=== PATIENT | female | born 1990 | race Caucasian/White ===

== ENCOUNTER 2019-01-06 06:14 | Emergency (ER) | payer BC, OTHER ==
[2019-01-06 06:25] VITALS: TEMP 97.4; BMI 23.8
--- NOTE | 2019-01-06 06:38 | PDOC ---
History of Present Illness - General Chief Complaint: Pain, Acute Stated Complaint: LOWER ABDOMINAL PAIN, BURNING WITH URINATION Time Seen by Provider: 01/06/19 06:26 History Source: Patient Exam Limitations: No Limitations - History of Present Illness Initial Comments: 01/06/19 06:41 This is a 28-year-old female who comes in complaining of body pain and abdominal pain. Patient said that she was fine yesterday at work went to go to the gym and a temperature to the gym she felt so uncomfortable that she decided to go home instead and did not go to the gym workout. Patient said over the evening and night the pain became progressively worse and started initially as periumbilical became lower abdominal pain associated with some dysuria and also radiated up into her chest and she says it hurts when she moves hurts when she breathes hurts when she coughs. Patient denies any significant cough or congestion, she denies any fevers or chills. Patient is otherwise healthy and takes no medication other than occasional medication for seasonal ALLERGIES. Allergies: as per nursing notes Past Medical History: none Social history: Lives with family. No smoking. No alcohol. No illicit drugs. Surgical history: None General: No fevers or chills, no weakness, no weight loss HEENT: No change in vision. No sore throat,. No ear pain CardioVascular: +chest discomfort pleuritic in natur, No shortness of breath, Respiratory:No cough, or wheezing. Gastrointestinal: no nausea, vomiting, diarrhea or constipation, No rectal bleeding. + Diffuse abdominal pain Genitourinary: + dysuria, no hematuria, or frequency Musculoskeletal: No joint or muscle pain or swelling Neurologic: No headache, vertigo, dizziness or loss of consciousness Psychiatric: nor depression Skin: No rashes or easy bruising Endocrine: no increased thirst or abnormal weight change Allergic: no skin or latex allergy All other systems reviewed and normal Exam: General: Well-nourished well-developed individual, no acute distress HEENT: Throat: Normal, tonsils normal, no erythema or exudate Neck: Supple, no meningeal signs, no lymphadenopathy Eyes::Pupils equal reactive and round, extraocular motion intact Chest: There is some tenderness on palpation of the anterior chest wall and pain reproduced with palpation and respiration Cardiac: S1-S2 normal, regular rate and rhythm, no murmurs rubs or gallops Respiratory: Lungs clear to auscultation bilateral, associated pleuritic chest pain with respiration Abdomen: Soft, nondistended, increased bowel sounds, there is + tenderness on palpation diffusely, there is no guarding or rebound Extremities: Warm, dry, no cyanosis, clubbing, or edema Skin: No rashes Neuro: Alert and oriented x3, CN II - XII intact, nonfocal exam with normal strength, normal sensation, normal reflexes, normal gait, Psych: Normal mood and affect Assessment and plan: This is a 28-year-old female who comes in with body aches and diffuse abdominal pain, and pleuritic chest pain. I'll obtain a work up including CBC, comp, lipase, urine, urine , urine culture, chest x-ray, EKG, cardiac profile, CRP 01/06/19 06:53 [facility], Dr. Rubio including history, physical exam and ancillary studies. Oncoming Emergency Physician has assumed care for the patient and will complete the evaluation and treatment. Patient is aware of the plan. Pt is clinically unchanged and stable. Past History - Past Medical History Allergies/Adverse Reactions: Allergies Allergy/AdvReac Type Severity Reaction Status Date / Time prednisone Allergy Verified 01/06/19 06:16 Home Medications: Ambulatory Orders Fexofenadine HCl [Beba Allergy] 60 mg PO DAILY 01/06/19 COPD: No Other medical history: ALLERGIES - Suicide/Smoking/Psychosocial Hx Smoking History: Never smoked Have you smoked in the past 12 months: No Information on smoking cessation initiated: No Hx Alcohol Use: No Drug/Substance Use Hx: No Substance Use Type: None *Physical Exam - Vital Signs Last Vital Signs Temp Pulse Resp BP Pulse Ox 97.4 F L 63 16 126/79 100 01/06/19 06:19 01/06/19 06:19 01/06/19 06:19 01/06/19 06:19 01/06/19 06:19 ED Treatment Course - LABORATORY CBC & Chemistry Diagram: 01/06/19 06:45 01/06/19 06:45 *DC/Admit/Observation/Transfer Diagnosis at time of Disposition: Ovarian cyst - Discharge Dispostion Disposition: HOME Condition at time of disposition: Stable - Referrals Referrals: [facility] at [place] [Provider Group] - Patient Instructions Printed Discharge Instructions: Ovarian Cyst Additional Instructions: Drink plenty of fluids. Take 2 tabs Aleve twice a day for the next 3 days. Follow-up with your GOL[employer]SE LABORER in 1-2 days. Return to the emergency department for any fever vomiting severe worsening abdominal pain or chest pain or for any concerns. - Post Discharge Activity Forms/Work/School Notes: Back to Work
[2019-01-06] MEDS ORDERED: KETOROLAC TROMETHAMINE 30 MG/1 ML VIAL ONE (06:47)
[2019-01-06] MEDS ORDERED: SODIUM CHLORIDE 1,000 ML IV ONE (06:47)
[2019-01-06] MEDS ORDERED: KETOROLAC TROMETHAMINE 30 MG/1 ML VIAL IVPUSH ONE (06:47)
[2019-01-06] MEDS ORDERED: ACETAMINOPHEN INJECTION 100 ML IVPB ONE (07:20)
[2019-01-06] MEDS ORDERED: ACETAMINOPHEN 1000 MG/100 ML VIAL (NON FORMULARY) IVPB ONE (07:21)
[2019-01-06 07:50] LABS: BASO % 0.6 % (0-2.0); EOS % 2.5 % (0-4.5); HEMATOCRIT 35.4 % (32.4-45.2); HEMOGLOBIN 11.7 GM/dl (10.7-15.3); LYMPH % 22.2 % (8-40); MCH 31.2 pg (25.7-33.7); MCHC 33.1 g/dl (32.0-36.0); MEAN CELL VOLUME 94.4 fl (80-96); MEAN PLT VOLUME 9.9 fl (7.5-11.1); MONO % 6.6 % (3.8-10.2); NEUT % 68.1 % (42.8-82.8); PLATELET COUNT 200 K/MM3 (134-434); RBC 3.75 M/mm3 (3.60-5.2); RDW 11.8 % (11.6-15.6); WHITE BLOOD COUNT 6.5 K/mm3 (4.0-10.8)
[2019-01-06 07:57] LABS: ALBUMIN 3.7 g/dl (3.4-5.0); ALK PHOS 80 U/L (45-117); ANION GAP 7 MMOL/L (8-16); BILIRUBIN,TOTAL 0.9 mg/dl (0.2-1); BLOOD UREA NITROGEN 8 mg/dl (7-18); CALCIUM 8.8 mg/dl (8.5-10); CHLORIDE 102 mmol/L (98-107); CO2 28 mmol/L (21-32); CREATININE 0.8 mg/dl (0.55-1.3); GLUCOSE,RANDOM 95 mg/dl (74-106); POTASSIUM 3.6 mmol/L (3.5-5.1); SGOT/AST 20 U/L (15-37); SGPT/ALT 14 U/L (13-61); SODIUM 137 mmol/L (136-145); TOT PROT 6.8 g/dl (6.4-8.2)
--- NOTE | 2019-01-06 08:45 | PDOC ---
*Physical Exam - Vital Signs Last Vital Signs Temp Pulse Resp BP Pulse Ox 97.4 F L 63 16 126/79 100 01/06/19 06:19 01/06/19 06:19 01/06/19 06:19 01/06/19 06:19 01/06/19 06:19 - Physical Exam Comments: 01/06/19 08:42 Vitals: Triage Vital signs reviewed General Appearance: no acute distress, well nourished well developed, Head: Atraumatic, Cardiac: Regular rate and rhythym, no murmurs, no rubs, no gallops, Lungs: Clear to auscultation bilateral, good air movement bilaterally, Abdomen: Soft left lower quadrant tenderness to palpation Genitourinary: Left adnexal tenderness palpation no masses, no CMT Extremities: Full range of motion to all extremities, no cyanosis, clubbing, or edema Skin: Warm and dry, no rashes or lesions, no rash, no petechiae Psych: normal mood, normal affect ED Treatment Course - LABORATORY CBC & Chemistry Diagram: 01/06/19 06:45 01/06/19 06:45 - ADDITIONAL ORDERS Additional order review: Laboratory Results 01/06/19 01/06/19 01/06/19 06:45 06:45 06:45 Sodium 137 Potassium 3.6 Chloride 102 Carbon Dioxide 28 Anion Gap 7 L BUN 8 Creatinine 0.8 Creat Clearance w eGFR 84.80 Random Glucose 95 Calcium 8.8 Total Bilirubin 0.9 AST 20 ALT 14 Alkaline Phosphatase 80 Creatine Kinase 87 Troponin I < 0.03 Total Protein 6.8 Albumin 3.7 Urine Color Urine Appearance Urine pH Urine Protein Urine Glucose (UA) Urine Ketones Urine Blood Urine Nitrite Urine Bilirubin Urine Urobilinogen Ur Leukocyte Esterase Urine HCG, Qual 01/06/19 01/06/19 06:34 06:34 Sodium Potassium Chloride Carbon Dioxide Anion Gap BUN Creatinine Creat Clearance w eGFR Random Glucose Calcium Total Bilirubin AST ALT Alkaline Phosphatase Creatine Kinase Troponin I Total Protein Albumin Urine Color Yellow Urine Appearance Clear Urine pH 5.5 Urine Protein Negative Urine Glucose (UA) Negative Urine Ketones Negative Urine Blood Negative Urine Nitrite Negative Urine Bilirubin Negative Urine Urobilinogen 0.2 Ur Leukocyte Esterase Negative Urine HCG, Qual Negative 01/06/19 06:45 RBC 3.75 MCV 94.4 MCHC 33.1 RDW 11.8 MPV 9.9 Neutrophils % 68.1 Lymphocytes % 22.2 Monocytes % 6.6 Eosinophils % 2.5 Basophils % 0.6 - RADIOLOGY Radiology Studies Ordered: Category Date Time Status CHEST PA & LAT [RAD] Stat Radiology 01/06/19 08:41 Ordered TRANSVAGINAL ULTRASOUND US [US] Stat Ultrasound 01/06/19 07:20 Ordered - Medications Given in the ED: ED Medications Discontinued Medications Generic Name Dose Route Start Last Admin Trade Name Freq PRN Reason Stop Dose Admin Acetaminophen 1,000 mg 01/06/19 07:21 01/06/19 07:23 Ofirmev Injection - IVPB 01/06/19 07:22 1,000 mg ONCE ONE Administration Sodium Chloride 1,000 mls @ 1,000 mls/hr 01/06/19 06:47 01/06/19 06:52 Normal Saline - IV 01/06/19 07:46 1,000 mls/hr .Q1H ONE Administration Ketorolac Tromethamine 30 mg 01/06/19 06:47 01/06/19 06:52 Toradol Injection - IVPUSH 01/06/19 06:48 30 mg ONCE ONE Administration Medical Decision Making - Medical Decision Making 01/06/19 08:43 28 years old no significant past medical history none of control negative for PE based on PE or see risk stratification score presents to the emergency department with sudden onset left lower quadrant pain yesterday while walking into the gym this was followed by diffuse abdominal discomfort and some chest discomfort with movement and deep inspiration Physical examination notable for diffuse abdominal discomfort, left lower quadrant pain and left adnexal tenderness on pelvic examination Pelvic examination performed with laboratory equipment installer Afsaneh No fever no white count patient not urinalysis with no evidence of infection Ultrasound demonstrates fluid under the left ovary as well as some pelvic fluid in the cul-de-sac At this time low suspicion for infectious etiology or acute abdomen History examination is most consistent with ruptured ovarian cyst given sudden onset of discomfort and findings of pelvic fluid in the cul-de-sac Lengthy discussion had with patient regarding pros and cons of CAT scan at this point given that patient's pain is improved with basic pain medication there is no evidence of infection and based on history and imaging at this time hemorrhagic ovarian cyst this appears most likely diagnosis shared decision- making used to minimize radiation at this time and avoid CAT scan Case with patient's W[employer] RESOURCE ENGINEERING SPECIALIST. Ultrasound suggestive of hemorrhagic cyst Patient feels better We'll follow up with her WATER RESOURCE ENGINEERING SPECIALIST this week Findings, the need for follow-up and strict return instructions discussed with patient. 01/06/19 17:36 *DC/Admit/Observation/Transfer Diagnosis at time of Disposition: Ovarian cyst Qualifiers: Laterality: left Qualified Code(s): N83.202 - Unspecified ovarian cyst, left side - Discharge Dispostion Disposition: HOME Condition at time of disposition: Stable Decision to Admit order: No - Referrals Referrals: [facility] [place] [facility] at [place] [Provider Group] - Patient Instructions Printed Discharge Instructions: Ovarian Cyst Additional Instructions: Drink plenty of fluids. Take 2 tabs Aleve twice a day for the next 3 days. Follow-up with your WATER RESOURCE ENGINEERING SPECIALIST in 1-2 days. Return to the emergency department for any fever vomiting severe worsening abdominal pain or chest pain or for any concerns. - Post Discharge Activity Forms/Work/School Notes: Back to Work
[2019-01-06 09:13] LABS: LIPASE 86 U/L (73-393)
[2019-01-06 09:39] VITALS: BP 115/62; PULSE 61
--- NOTE | 2019-01-06 14:45 | EKG ---
Test Reason : Blood Pressure : / mmHG Vent. Rate : 060 BPM Atrial Rate : 060 BPM P-R Int : 130 ms QRS Dur : 082 ms QT Int : 430 ms P-R-T Axes : 028 044 026 degrees QTc Int : 430 ms NORMAL SINUS RHYTHM WITH SINUS ARRHYTHMIA NORMAL ECG NO PREVIOUS ECGS AVAILABLE Confirmed by Issac Alberto ([id number]) on 01/06/2019 2:45:06 PM Referred By: DELROY MOLINA Confirmed By:Issac Alberto
== END 2019-01-06 09:40 | disposition home or self-care (01) ==
LOC: FER 06:14
PROC: 3E033NZ Introduction of Analgesics, Hypnotics, Sedatives into Peripheral Vein, Percutaneous Approach (ICD-10-PCS; principal; 2019-01-06)
PROC: 3E0333Z Introduction of Anti-inflammatory into Peripheral Vein, Percutaneous Approach (ICD-10-PCS; 2019-01-06)
PROC: 3E0337Z Introduction of Electrolytic and Water Balance Substance into Peripheral Vein, Percutaneous Approach (ICD-10-PCS; 2019-01-06)
DX: N83.202 Unspecified ovarian cyst, left side (principal)
CPT/HCPCS: 36415; 71046-TC-FY; 76830-TC; 80053; 81003; 82550; 83690; 84484; 84703; 85025; 86140; 87086; 93005; 99283-25; J0131; J7030

== ENCOUNTER 2021-05-13 12:23 | Emergency (ER) | payer OTHER ==
[2021-05-13 12:48] VITALS: BP 132/83; PULSE 72; TEMP 99.1; BMI 23.6
[2021-05-15 18:08] LABS: SARS-CoV-2 NAA Not Detected (Not Detected)
== END 2021-05-13 14:05 | disposition home or self-care (01) ==
LOC: FER 12:23
DX: R05 Cough (principal); R09.81 Nasal congestion
CPT/HCPCS: 71046-TC-FY; 87804; 93005; 99285-25; C9803; U0003; U0005